=== PATIENT | female | born 1945 | race Caucasian/White ===

== ENCOUNTER 2023-08-28 10:34 | Emergency (ER) | payer MEDICARE, MEDICAID ==
[~2023-08-28] VITALS: Ht 154.9 cm; Wt 61.0 kg
[2023-08-28 10:47] VITALS: BP 110/56; PULSE 67; RESP 16; TEMP 98.6; O2SAT 97
== END 2023-08-28 19:37 | disposition home or self-care (01) ==
LOC: ER 10:34
DX: M25.561 Pain in right knee (principal); M25.551 Pain in right hip; Z88.0 Allergy status to penicillin; W01.0XXA Fall on same level from slipping, tripping and stumbling without subsequent striking against object, initial encounter; Y93.89 Activity, other specified; Y92.89 Other specified places as the place of occurrence of the external cause; Y99.8 Other external cause status
CPT/HCPCS: 73502; 73700; 99284